=== PATIENT | female | born 1980 | race American Indian/Alaskan Native ===

== ENCOUNTER 2020-11-01 06:11 | Day surgery (SDC) | payer OTHER ==
--- NOTE | 2020-10-31 10:09 | History and Physical Report ---
History of Present Illness Date of examination: 10/25/20 History of present illness: Visit Type: Pre-Op CC: pre op. History of Present Illness: pt presents for pre op visit......................................................................Apple Frost October 25, 2020 4:13 PM mask, Patient denies fever, cough, shortness of breath and exposure to COVID-19. Pt presents today as referred by [facility] for salpingectomy due to left hydrosalpinx noted on hsg done 09/24/20. There was spillage on both tubes and left side showed dilation and slow spillage. Pt was couseld by [facility] on the benifits of having salpigectomy. Pt also noted to have 5cm fibroid and declines myomectomy at this time. Pt does c/o having some pain in pelvic area that comes and goes. No changes in her period. Pt here today for preOp visit for diagnostic laproscopy with chromotubation. I d/w that the findings may present the same as the hsg. Pt expressed understanding stating the previousl the right tube was blocked and now it is open and she wants provider to see if there is swelling of the left tube as indicated in the [facility] report. I reminded pt of the recommendation to remove the tube if swollen or dialted or appears abnormal as this may impeed or complicat the [facility] process. She declines any surgical removal and only wanta diagnostic evaluation. I again stressed that this could be she could wake up with a diseased tube left inside that could result in ectipic , ect with the limited embroys she has left. She expressed under stanidng and states she does not want any removal of any of the organs at this time. I stressed risk of bleeding as well as injury to surrounding organs during placement of the scope or the placement of the dye in the uterus and tubes. She epressed understanding and agrees to these risk. All risk/benefits/alternatives were d/w pt and questions were addressed and answered. Vital Signs: Patient Profile: 39 Years Old Female LMP: 10/14/2019 Height: 69 inches (175.26 cm) Weight: 232 pounds BMI: 34.26 Temp: 97.1 degrees F BP sittin / 76 (left arm) Menstrual History: LMP (date): 10/14/2019 Current Method of Contraception: None Date of Last Pap Smear: 03/29/2020 Past History : 3 Term Births: 0 Premature Births: 0 Living Children: 0 Para: 0 Mult. Births: 0 Prev : 0 Aborta: 2 Elect. Ab: 1 Spont. Ab: 2 Ectopics: 0 [employer] History Uterine Surgery (not C/S): negative Operations: D&C: Robotic Myomectomy (03/27/2013) Hospitalizations: negative Anesthesia Complications: negative Abnormal PAP: negative Uterine Anomaly: positive fibroids KELLY Exposure: negative Infertility: negative Infection History HIV Risk Eval: no Personal hx. of genital herpes: no Hx of STD: HSV 1 Active Medications (reviewed today): PNV () FLONASE () NIFEDIPINE () LABETALOL HCL TABLET (LABETALOL HCL TABS) Current Allergies (reviewed today): No known allergies Past Medical History: Reviewed history from 01/17/2015 and no changes required: Hypertension Past Surgical History: Reviewed history from 01/17/2015 and no changes required: D&C: Robotic Myomectomy (03/27/2013) Family History Summary: Reviewed history Last on 03/12/2020 and no changes required:10/31/2020 Other Family Member - Has No Family History of Uterine Cancer - Entered On: 07/20/2018 Other Family Member - Has No Family History of Small Bowel Cancer - Entered On: 07/20/2018 Other Family Member - Has No Family History of Stomach Cancer - Entered On: 07/20/2018 Other Family Member - Has No Family History of Pancreatic Cancer - Entered On: 07/20/2018 Other Family Member - Has No Family History of Ovarvian Cancer - Entered On: 07/20/2018 Other Family Member - Has No Family History of Kidney/Urinary Tract Cancer - Entered On: 07/20/2018 Other Family Member - Has No Family History of Spontaneous DVT-PE - Entered On: 07/20/2018 Other Family Member - Has No Family History of Colon Cancer - Entered On: 07/20/2018 Other Family Member - Has No Family History of Brain Cancer - Entered On: 07/20/2018 Other Family Member - Has No Family History of Breast Cancer - Entered On: 07/20/2018 Other Family Member - Has No Family History of Biliary Tract Cancer - Entered On: 07/20/2018 Social History: Reviewed history from 04/07/2017 and no changes required: 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 Risk Factors: Smoked Tobacco Use: Never smoker Smokeless Tobacco Use: Never Drug use: no HIV high-risk behavior: no Alcohol use: yes Type: occ Exercise: yes Seatbelt use: 100 % PAP Smear History: Date of Last PAP Smear: 03/29/2020 [[facility]] [Labs In-House] Physical Exam Appearance: well developed, well nourished, no acute distress Other Exams Abdomen: soft, non-tender, no masses, bowel sounds normal Extremities: normal alignment, no joint enlargement, crepitus, masses or tenderness; normal tone and strength Genitourinary Exam Comments: deferred until EUA Medications and Allergies Allergies Allergy/AdvReac Type Severity Reaction Status Date / Time No Known Allergies Allergy Unverified 10/28/20 10:31 Home Medications Medication Instructions Recorded Confirmed Last Taken Type NIFEdipine [Nifedipine ER] 30 mg PO BID 10/28/20 10/28/20 Unknown History Pnv,Calcium 72/Iron/Folic Acid 1 each PO DAILY 10/28/20 10/28/20 Unknown History [Pnv Plus Multivit Tab] Results All other labs normal. Assessment and Plan - Patient Problems (1) Pelvic pain Status: Acute Plan to address problem: dx scope to confrm findings on hsg (2) Hydrosalpinx Status: Acute Plan to address problem: -dx scope -chromotubation to evalute tubal patency b/l
[~2020-11-01 06:11] MED LIST: ceFAZolin/Water 2 GM/20 ML 2 GM/20 ML SYRINGE IV NR
--- NOTE | 2020-11-01 07:08 | Anesthesia Consultation ---
Anesthesia Consult and Med Hx Date of service: 11/01/20 - Airway Anesthetic Teeth Evaluation: Good ROM Head & Neck: Adequate Mental/Hyoid Distance: Adequate Mallampati Class: Class II Intubation Access Assessment: Good - Pulmonary Exam CTA: Yes - Cardiac Exam Cardiac Exam: RRR - Pre-Operative Health Status ASA Pre-Surgery Classification: ASA2 Proposed Anesthetic Plan: General - Pulmonary Hx Sleep Apnea: Yes - Cardiovascular System Hx Hypertension: Yes (DX 7 YEARS AGO) - Central Nervous System Hx Psychiatric Problems: No - Other Systems Hx Alcohol Use: Yes (OCCASIONALLY) Hx Cancer: No
--- NOTE | 2020-11-01 07:08 | Anesthesia Day of Surgery ---
Anesthesia Day of Surgery - Day of Surgery Patient Examined: Yes Patient H&P Reviewed: Yes Patient is NPO: Yes
[2020-11-01] MEDS ORDERED: BUPIVACAINE/PF (0.5%) 5 MG/1 ML 30 ML VIAL INFILTRATI ONE ×2 (07:13→08:34)
[2020-11-01] MEDS ORDERED: LACTATED RINGERS 1,000 ML IV SCH (07:15)
[2020-11-01] MEDS ORDERED: ePHEDrine SULFATE 50 MG/1 ML INJ ONE (07:35)
[2020-11-01] MEDS ORDERED: propofoL 200 MG/20 ML VIAL IV ONE (07:36)
[2020-11-01] MEDS ORDERED: fentaNYL 100 MCG/2 ML INJ ONE (07:36)
[2020-11-01] MEDS ORDERED: METHYLENE BLUE 50 MG/10 ML AMP ONE (07:36)
[2020-11-01] MEDS ORDERED: ROCURONIUM 50 MG/5 ML INJ IV ONE (07:37)
[2020-11-01] MEDS ORDERED: LIDOCAINE MPF (2%) 20 MG/1 ML VIAL 5 ML ONE (07:37)
[2020-11-01] MEDS ORDERED: GLYCOPYRROLATE 0.4 MG/2 ML INJ ONE (07:37)
[2020-11-01] MEDS ORDERED: PHENYLEPHRINE/NS 1,000 MCG/10 ML SYRINGE (OR USE) IV ONE (07:37)
[2020-11-01] MEDS ORDERED: NEOSTIGMINE 10MG/10 ML INJ MDV ONE (07:37)
[2020-11-01] MEDS ORDERED: SUCCINYLCHOLINE CHLORIDE 200 MG/10 ML INJ MDV ONE (07:37)
[2020-11-01] MEDS ORDERED: dexAMETHasone 20 MG/5 ML VIAL ONE (07:37)
[2020-11-01] MEDS ORDERED: ONDANSETRON 4 MG/2 ML INJ ONE (07:37)
[2020-11-01 07:38] LABS: Mean Corpuscular HGB Conc 33 % (30-34); Mean Corpuscular Volume 86 fl (79-97); Platelet Count 330 K/mm3 (140-440); Red Blood Count 4.91 M/mm3 (3.65-5.03); Red Cell Distribution Width 13.1 % (13.2-15.2)
[2020-11-01 07:49] LABS: Blood Urea Nitrogen 10 mg/dL (7-17); Calcium 9.1 mg/dL (8.4-10.2); Hemolysis Index 6
[2020-11-01] MEDS ORDERED: HYDROmorphone 1 MG/1 ML INJ ONE ×2 (07:59→08:46)
[2020-11-01] MEDS ORDERED: MIDAZOLAM 2 MG/2 ML INJ IV NR (08:00)
[2020-11-01 08:07] LABS: BUN/Creatinine Ratio 14
[2020-11-01] MEDS ORDERED: SODIUM CHLORIDE 0.9% IRRIG SOLN 2000 ML IR ONE (08:35)
[2020-11-01] MEDS ORDERED: SODIUM CHLORIDE 0.9% IRR 1,500 ML BOTTLE IR ONE (08:35)
[2020-11-01] MEDS ORDERED: METHYLENE BLUE 50 MG/10 ML AMP IRRIGATION ONE (08:35)
--- NOTE | 2020-11-01 08:49 | Operative Report ---
Operative Report Operative Report: Date of procedure: 11/01/2020 Pre-operative diagnosis: Left hydrosalpinx Pelvic pain Posterior uterine fibroid Post-operative diagnosis: Same plus omental adhesions to the uterus Procedure name(s): Exam and anesthesia Diagnostic laparoscopy Lysis of adhesions Chromotubation with methylene blue Surgeon: Dr. Thapa Pipe Processor: JUAN JOSE Anesthesia: General endotracheal anesthesia EBL: Minimal Urine output: 100 cc of clear urine out at the beginning of the procedure via straight catheterization Fluids: 1 L Findings: Approximately 5 cm posterior fibroid Grossly normal fallopian tubes and ovaries bilaterally. There was no hydrosalpinx that was noted bilaterally Spillage of dye in the pelvis noted bilaterally Indications: Patient has a history of pelvic pain as well as infertility. Patient had hysterosalpingogram that showed dilation of left fallopian tube and this warranted further investigation. All risk benefits and alternatives were discussed with the patient. Consents were signed and placed on the chart. Procedure: Patient was taken to the operating room in which she was placed under general endotracheal anesthesia in dorsolithotomy position. Once under anesthesia placed in slacks was placed in Nikolas stirrups. Sterile speculum was placed inside of the vagina after straight catheterization had been performed. Anterior lip of the cervix was grasped with tenaculum the uterus was sounded to allow passage of the HUMI device. HUMI device was placed without difficulty. Attention was then turned abdominally in which a super abdominal incision was placed and the laparoscope was placed under direct visualization. The abdomen was then insufflated. A second inferior incision was then placed just above the pubic bone under direct visualization. The above-stated findings were noted. There was adhesions to the right fundal surface of the uterus of the omentum. The LigaSure device was used to cauterize and lyse this adhesion. Minimal bleeding was noted at this time at the fundal surface of the uterus in which the LigaSure device was used as well as Dav. Excellent hemostasis was noted. The pelvis was then copiously irrigated. Attention was then backed turned vaginally in which the methylene blue was then injected into the uterus approximately 25 cc was injected. Attention was then turned laparoscopically in which blue dye was seen bilaterally coloring both the fimbria of both tubes as well as in the pelvis. It was at this time that all instruments were removed from the abdomen as well as the vagina. The abdominal incisions were closed using 4 Monocryl in a subcuticular stitch. Marcaine without epi was then injected at both incisions. Patient was taken to the recovery room awake in stable condition. Patient tolerated procedure well. Patient was given 2 g of Ancef prior to the onset of the procedure.
--- NOTE | 2020-11-01 08:49 | Short Stay Summary ---
Short Stay Documentation Date of service: 11/01/20 - History Principal diagnosis: Pelvic pain; left hydrosalpinx H&P: obtained from office - Allergies and Medications Current Medications: Allergies No Known Allergies Allergy (Unverified 10/28/20 10:31) Home Medications Medication Instructions Recorded Confirmed Last Taken Type NIFEdipine [Nifedipine ER] 30 mg PO BID 10/28/20 11/01/20 11/01/20 05:00 History Pnv,Calcium 72/Iron/Folic Acid 1 each PO DAILY 10/28/20 11/01/20 10/31/20 09:00 History [Pnv Plus Multivit Tab] Active Medications Cefazolin Sodium (Ancef/Sterile Water 2 Gm/20 Ml) 2 gm in 20 mls @ 80 mls/hr IV PREOP NR; Protocol Stop: 11/02/20 06:00 Lactated Ringer's (Lactated Ringers) 1,000 mls @ 75 mls/hr IV DIRECT TREV Last Admin: 11/01/20 07:20 Dose: 75 mls/hr Documented by: Midazolam HCl (Midazolam 2 Mg/2 Ml Inj) 2 mg IV PREOP NR Stop: 11/01/20 23:59 Last Admin: 11/01/20 07:27 Dose: 2 mg Documented by: - Brief post op/procedure progress note Date of procedure: 11/08/20 Pre-op diagnosis: Pelvic pain #2 left hydrosalpinx Post-op diagnosis: same (Same plus adhesions of the omentum to the uterus and and to abdominal wall) Procedure: Diagnostic laparoscopy Exam and anesthesia Lysis of adhesions Chromotubation with methylene blue Anesthesia: GETA Findings: See operative report Surgeon: FLORECITA ROMERO Estimated blood loss: minimal Pathology: none Condition: stable - Hospital course Hospital course: Patient was admitted for above-stated procedure which was not complicated. Patient will have recovery and PACU and be discharged home when she has met recovery criteria and discharge criteria. Patient will be seen in the office in approximately 1 to 2 weeks for postoperative follow-up. - Disposition Condition at discharge: Good Disposition: [id number] TO HOME OR SELFCARE - Discharge Diagnoses (1) Pelvic pain Status: Acute (2) Hydrosalpinx Status: Acute Short Stay Discharge Plan Activity: no restrictions Weight Bearing Status: Weight Bear as Tolerated Diet: regular Follow up with: DR FOREST [Other] - 7 Days FLORECITA ROMERO MD [Staff Physician] - 7 Days
[2020-11-01] MEDS ORDERED: HYDROmorphone 1 MG/1 ML INJ IV NR (09:50)
[2020-11-01] MEDS ORDERED: ONDANSETRON 4 MG/2 ML INJ IV PRN (09:50)
[2020-11-01] MEDS ORDERED: HYDROmorphone 1 MG/1 ML INJ IV PRN ×2 (09:50)
[2020-11-01 12:50] VITALS: BP 132/89
--- NOTE | 2020-11-01 15:33 | Post Anesthesia Evaluation ---
- Post Anesthesia Evaluation Patient Participated: Yes Airway Patent: Yes Stable Respiratory Function: Yes Nausea/Vomiting: No Temp > 96.8F: Yes Pain Manageable: Yes Adequeate Hydration: Yes Anesthesia Complications: No Block Receding Appropriately: Not Applicable Patient on Ventilator: No
== END 2020-11-01 06:12 | disposition home or self-care (01) ==
LOC: OR 06:11
PROVIDERS: ATTEND Obstetrics & Gynecology
DX: N70.11 Chronic salpingitis (principal); I10 Essential (primary) hypertension; G47.30 Sleep apnea, unspecified; Z79.899 Other long term (current) drug therapy; Z98.890 Other specified postprocedural states
CPT/HCPCS: 36415; 58350; 58660; 80048; 81025; 85027; A4217; J0330; J0690; J1100; J1170; J2250; J2370; J2405; J2704; J2710; J3010; J7120; Q9968